=== PATIENT | male | born 1990 | race African-American/Black ===

== ENCOUNTER 2024-07-08 14:14 | Emergency (ER) | payer OTHER, SELFPAY ==
--- NOTE | ~2024-07-08 | XR_ITS ---
EXAMINATION: Left tibia and fibula 2 views. CLINICAL INDICATION: Evaluate foreign body. COMPARISON: None. FINDINGS/ XR/XR tibia fibula LT 2V IMPRESSION: Where a marker has been placed along the left proximal lower leg there is a subtle lucency and faint nonradiopaque soft tissue density along the subcutaneous tissue. But no radiopaque foreign body seen. There is no visible bony abnormality seen. Electronically signed by: Shashank Lemus MD 07/08/2024 06:54 PM EDT RP
[2024-07-08 16:03] VITALS: BP 115/79; PULSE 70; RESP 16; TEMP 36.9; O2SAT 98; BMI 25.0
[2024-07-08] MEDS: Lidocaine HCl 1 % MPF 5 ML VIAL INFILTRATI ×2 (16:51→17:49)
[2024-07-08] MEDS: Diphth,Pertus(ACell),Tet Adult 0.5 ML SYRINGE IM (16:51)
--- NOTE | 2024-07-08 17:47 | ED.SKABFB ---
HPI - Skin/Abscess/Foreign Bdy General Chief complaint: Skin/Abscess/Foreign Body Stated complaint: l leg inj at work Time Seen by Provider: 07/08/24 16:39 Source: patient, RN notes reviewed and old records reviewed Mode of arrival: ambulatory History of Present Illness ED Provider: Fe Dawson PA-C HPI narrative: 34-year-old male with no significant past medical history presenting to the ED complaining of wood splinter stuck in left lower extremity s/p brian at work [employer]. States was nailing down piece of wood, however, slipped and piece went into leg. Tetanus unknown. Denies injury to other area, numbness, tingling, weakness Related Data Previous Rx's ?Medication ?Instructions ?Recorded cephalexin 500 mg capsule 500 mg PO QID 7 days #28 caps 07/08/24 Allergies Allergy/AdvReac Type Severity Reaction Status Date / Time No Known Allergies Allergy Verified 07/08/24 16:06 Review of Systems Review of Systems: Yes all other systems are reviewed and are negative Constitutional: Constitutional: Reports as per [facility] Past Medical History Attestation statement: The following information was validated with the patient. Source: old records reviewed Social History Social History Advance Directives: No Advance Directives Information Provided: No Physical Exam Vital Signs: Vital Signs: Last Vital Signs Temp 98.4 F 07/08/24 16:03 Pulse 70 07/08/24 16:03 Resp 16 07/08/24 16:03 BP 115/79 07/08/24 16:03 Pulse Ox 98 07/08/24 16:03 O2 Del Method Room Air 07/08/24 16:03 BMI result Body Mass Index 25.0 Const: General: cooperative, healthy appearing and no acute distress Orientation/consciousness: patient oriented x3 Limitations: no limitations HEENT: Head: Yes normal to inspection and Yes atraumatic Ears: hearing grossly normal bilaterally General nose exam: Normal external nose present Face and sinus: Yes normal facial exam Eyes: General: appearance normal, both eyes and all related structures EOM: EOMs intact bilaterally Neck: Neck: Yes normal visual inspection and Yes no meningeal signs Resp: Effort & Inspection: normal respiratory effort and no respiratory distress Cardio: Rate: regular rate Neuro: General: patient oriented x3, tone normal and no meningeal signs Cranial nerves: Yes CN's II-XII intact bilaterally Gait exam (Neuro): Normal gait present Extrem: Other: Small open wound noted to left lower extremity with palpable foreign body. No active bleeding. Mildly tender. Mild swelling. No surrounding erythema. No fluctuance or induration. Course Course Course Narrative: Local anesthetic injected into area. Small incision made at foreign body palpation state. This medical writer attempted foreign body removal without success. ED case discussed with Dr. Casper who evaluated patient and performed successful foreign body removal. Area irrigated and dressing applied > will have patient follow-up with PCP and general surgery Results discussed with patient including worrisome signs and symptoms and strict return precautions, and when to return to the emergency department. They verbalized understanding and feel safe for discharge at this time. Medications Administered Discontinued Medications Generic Name Dose Route Start Last Admin Trade Name Freq PRN Reason Stop Dose Admin Diphtheria/Tetanus/Acell Pertussis 0.5 ml 07/08/24 16:41 07/08/24 16:51 Diphth,Pertus(Acell),Tet Adult 0.5 Ml Syringe IM 07/08/24 16:42 0.5 ml .ONCE ONE Administration Lidocaine HCl 5 ml 07/08/24 16:41 07/08/24 16:51 Lidocaine Hcl 1 % Mpf 5 Ml Vial INFILTRATI 07/08/24 16:42 5 ml ONCE ONE Administration Lidocaine HCl 5 ml 07/08/24 17:46 07/08/24 17:49 Lidocaine Hcl 1 % Mpf 5 Ml Vial INFILTRATI 07/08/24 17:47 5 ml ONCE ONE Administration Medical Decision Making Medical Decision Making [facility] Narrative: 34-year-old male with no significant past medical history presenting to the ED complaining of wood splinter stuck in left lower extremity s/p brian at work [employer]. On exam vital signs stable, NAD, nontoxic appearing, physical exam as noted above with palpable foreign body. No evidence of abscess or acute cellulitis. Plan: X-ray, attempted foreign body removal with local anesthetic Please refer to course for remaining clinical decision making, interpretation of labs/imaging results, and discussions with consultants and/or family members. Differential Diagnosis Differential Diagnoses: The differential diagnosis associated with the presentation includes As above Independent Interpretation I performed an independent interpretation of an: Plain X-Ray Radiology Impression Discussion of test interpretation with radiology: I have reviewed the radiologist's reading. External Record Review External record reviewed: Inpatient record, Office record, Outpatient record, Prior outpatient labs, Prior outpatient radiology, Primary care record and Outside ED record Tests considered The following testing was considered but not selected: As above Prescription Management I considered prescription management with: Pain Medication and Antibiotic Procedures Foreign Body Removal Site: left and lower extremity Description of foreign body: other (wood) Sedation/Analgesia: other (1% lidocaine) Technique: removal with forceps and irrigation Confirmed by:: radiograph, patient report and palpation Complications: none Post-procedure exam: awake, alert Neurovascular: normal distal pulse Discharge Plan Discharge Clinical Impression: Foreign body in left lower extremity Patient Disposition: Home, Self-Care Instructions: Soft Tissue Foreign Body (ED) Additional Instructions: You had wood stuck in your leg. This was removed in the emergency department Please follow-up with general surgery and your doctor Keep area dry and clean Keflex as an antibiotic please take as prescribed until completion IF AREA BEGINS TO BECOME A RED, INCREASINGLY SWOLLEN, HAVE PUS DRAINAGE OR YOU HAVE FEVER RETURN TO THE EMERGENCY DEPARTMENT Prescriptions: New cephalexin 500 mg capsule 500 mg PO QID 7 Days Qty: 28 0RF Referrals: [facility] [place] General Surgeons [Provider Group] Physician,None [Primary Care Provider] - Stand Alone Forms: Work/School Release Print Language: Polish
[2024-07-08 18:51] VITALS: BP 143/96; PULSE 67; RESP 16; TEMP 36.9; O2SAT 100
[2024-07-08 19:06] VITALS: BP 143/96; PULSE 67; RESP 16; TEMP 36.9; O2SAT 100
== END 2024-07-08 19:08 | disposition home or self-care (01) ==
PROVIDERS: Emergency Provider Emergency Medicine Emergency Medical Services
DX: S80.852A Superficial foreign body, left lower leg, initial encounter (principal); W45.8XXA Other foreign body or object entering through skin, initial encounter; Y93.H3 Activity, building and construction; Y92.89 Other specified places as the place of occurrence of the external cause; Y99.0 Civilian activity done for income or pay; Z23 Encounter for immunization
CPT/HCPCS: 73590; 90471; 90715; 99283; 99284; J2003